=== PATIENT | female | born 1955 | race Caucasian/White ===

== ENCOUNTER 2019-04-05 19:04 | Emergency (ER) | payer BC ==
[2019-04-05] MEDS ORDERED: Bacitracin Oint 1 GM U/D Packet TOP ONE (21:10)
--- NOTE | 2019-04-05 21:25 | EDM.PDOC ---
ED HPI GENERAL MEDICAL PROBLEM - General Chief Complaint: Bite:Animal, Insect Stated Complaint: animal bite Time Seen by Provider: 04/05/19 20:07 Source of Information: Reports: Patient History Limitations: Reports: No Limitations - History of Present Illness INITIAL COMMENTS - FREE TEXT/NARRATIVE: This lady was bitten by her family dog just shortly before arrival. She said it' s a rescue dog patient had for your so and for some reason it turned on her and bit him pretty badly and then also of bit the patient. The dog had all its shots Treatments [employer]: Reports: Dressing(s) Right Finger-Ring Pain Score (Numeric/FACES): 5 - Related Data Allergies Allergy/AdvReac Type Severity Reaction Status Date / Time amoxicillin Allergy Mild Cannot Verified 04/05/19 20:32 Remember clindamycin Allergy Diarrhea Verified 04/05/19 20:32 Sulfa (Sulfonamide Allergy Cannot Verified 04/05/19 20:32 Antibiotics) Remember Home Meds: Home Meds ALPRAZolam [Xanax] 0.25 mg PO DAILY 04/05/19 [History] Escitalopram Oxalate [Lexapro] 5 mg PO DAILY 04/05/19 [History] Levothyroxine Sodium 137 mcg PO DAILY 04/05/19 [History] Past Medical History Psychiatric History: Reports: Anxiety Dermatologic History: Reports: Other (See Below) Other Dermatologic History: dermoid tumor Social & Family History - Tobacco Use Smoking Status *Q: Never Smoker - Caffeine Use Caffeine Use: Reports: None - Alcohol Use Days Per Week of Alcohol Use: 3 Number of Drinks Per Day: 1 Total Drinks Per Week: 3 - Recreational Drug Use Recreational Drug Use: No ED ROS GENERAL - Review of Systems Review Of Systems: ROS reveals no pertinent complaints other than HPI. ED EXAM, ANIMAL BITE - Physical Exam Exam: See Below Exam Limited By: No Limitations General Appearance: Alert, WD/WN, No Apparent Distress Extremities: Other (There are 2 lacerations to the right ring finger. One laceration is to the palm were and thumb side across the PIP joint and then on to the thumb side of the ring finger. It's about 1-1/2 cm long. It is full- thickness. There is a smaller laceration to the dorsal ulnar side of the proximal middle phalanx it's a much smaller laceration only about 5 mm deep it' s also full-thickness but edges are well approximated. Neurovascular tendon is all intact.) Course - Vital Signs Last Recorded V/S: Last Vital Signs Temp 35.4 C 04/05/19 20:34 Pulse 64 04/05/19 20:34 Resp 18 04/05/19 20:34 BP 157/85 H 04/05/19 20:34 Pulse Ox 99 04/05/19 20:34 - Orders/Labs/Meds Meds: Medications Discontinued Medications Generic Name Dose Route Start Last Admin Trade Name Dustin PRN Reason Stop Dose Admin Bacitracin 1 dose 04/05/19 21:10 Bacitracin Oint 1 Gm TOP 04/05/19 21:11 ONETIME ONE Lidocaine HCl 5 ml 04/05/19 20:38 Xylocaine-Mpf 1% INJECT 04/05/19 20:39 ONETIME ONE Lidocaine HCl 5 ml 04/05/19 21:10 Xylocaine-Mpf 1% INJECT 04/05/19 21:11 ONETIME ONE - Re-Assessments/Exams Free Text/Narrative Re-Assessment/Exam: 04/05/19 21:15 A digital nerve block was done with 5 mL of 1% plain lidocaine. After an appropriate period of time she still had a little bit of sensation so about another milliliter and a half of plain 1% lidocaine was then injected locally. The wound was then inspected explored and both of them worse copiously lavaged with many syringes of normal saline. The larger of the wounds was then closed with just some widely spaced retention sutures of 5-[address] Cristina was they' re seeing her and felt like this was probably the best way rather than leaving it wide open or trying to close it all the way. Free Text/Narrative Re-Assessment/Exam: 04/05/19 21:30 Last tetanus in December of this year Departure - Departure Time of Disposition: 21:27 Disposition: Home, Self-Care 01 Condition: Fair Clinical Impression: Dog bite of hand - Discharge Information Referrals: PCP,None [Primary Care Provider] - Additional Instructions: Take the antibiotics Cipro 500 mg twice daily for 5 days. Also take Flagyl ( metronidazole) 500 mg twice daily for 5 days. The prescription will say 7 days and they will be some extra medication left over Watch for signs of infection such as redness spreading up your hand. There will be some swelling and redness to the finger and part of your hand for a few days but if this is getting progressively worse then you need to see a doctor right away. Wash the wound with soap and water once or twice daily and apply some antibiotic ointment. Keep the wound covered with a dressing at all times. The sutures need to stay in for 10 days. For pain use the Narco 5/325, #6 tablets, one or 2 every 4 hours as needed. This medication can cause sedation and impair driving or cause addiction.
== END 2019-04-05 21:33 | disposition home or self-care (01) ==
LOC: JP.ED 19:04
DX: S61.254A Open bite of right ring finger without damage to nail, initial encounter (principal); F41.9 Anxiety disorder, unspecified; Z79.899 Other long term (current) drug therapy; Z88.1 Allergy status to other antibiotic agents; Z88.2 Allergy status to sulfonamides; W54.0XXA Bitten by dog, initial encounter
CPT/HCPCS: 12001; 99283; J2001